=== PATIENT | male | born 1950 | race Caucasian/White ===

== ENCOUNTER 2017-04-04 00:53 | Inpatient (IN) | payer OTHER ==
[~2017-04-04] VITALS: Ht 180.3 cm; Wt 89.0 kg
[2017-04-04 02:28] LABS: CALCIUM 8.5 mg/dL (8.5-10.1); CARBON DIOXIDE 27.1 mmol/L (21-32); CHLORIDE SERUM 105 mmol/L (98-107); CREATININE SERUM 1.2 mg/dL (0.7-1.3); GFR1 > 60 mL/min; GLUCOSE SERUM 157 mg/dL (74-106); POTASSIUM SERUM 3.5 mmol/L (3.5-5.1); SODIUM SERUM 142 mmol/L (136-145)
[2017-04-04 02:33] LABS: ALBUMIN 3.6 g/dL (3.4-5.0); ALKALINE PHOSPHATASE 54 U/L (46-116); ALT/SGPT 34 U/L (16-63); AST/SGOT 21 U/L (15-37); BILIRUBIN TOTAL 0.48 mg/dL (0.20-1.00)
[2017-04-04 03:01] LABS: BASOPHIL % 0.4 % (0-2); PLATELET COUNT 259 x10^3mcL (130-400)
[2017-04-04] MEDS ORDERED: LIPI10 PO (03:14)
[2017-04-04] MEDS ORDERED: HYDROCHLOROTH12.5 M2 PO (03:15)
[2017-04-04 03:56] VITALS: BP 127/74
[2017-04-04 04:53] LABS: FREE T4 0.93 ng/dL (0.76-1.46); FREE THYROXINE INDEX 2.5 ug/dL (1.4-4.5); T4(THYROXINE) 7.2 ug/dL (4.7-13.3)
[2017-04-04 04:54] LABS: T3 TOTAL 1.25 ng/mL
[2017-04-04 05:05] LABS: MAGNESIUM 2.1 mg/dL (1.8-2.4); PHOSPHOROUS 2.8 mg/dL (2.5-4.9)
[2017-04-04 05:38] VITALS: BP 127/74
[2017-04-04 09:45] VITALS: BP 112/64
[2017-04-04 13:41] VITALS: BP 122/75
[2017-04-04 17:39] VITALS: BP 130/64
[2017-04-04 20:41] VITALS: BP 132/70
[2017-04-05 05:43] VITALS: BP 140/71
[2017-04-05 09:14] VITALS: BP 146/70
[2017-04-05 17:45] VITALS: BP 138/74
[2017-04-05 20:58] VITALS: BP 150/78
[2017-04-06 05:47] VITALS: BP 139/74
[2017-04-06 06:17] LABS: PLATELET COUNT 213 x10^3mcL (130-400); RED CELL DISTRIBUTION WIDTH 13.1 % (11.5-14.5)
[2017-04-06 06:40] LABS: CALCIUM 8.4 mg/dL (8.5-10.1); CARBON DIOXIDE 30.5 mmol/L (21-32); CHLORIDE SERUM 104 mmol/L (98-107); CREATININE SERUM 0.9 mg/dL (0.7-1.3); GFR1 > 60 mL/min; GLUCOSE SERUM 117 mg/dL (74-106); PHOSPHOROUS 2.6 mg/dL (2.5-4.9); POTASSIUM SERUM 3.7 mmol/L (3.5-5.1); SODIUM SERUM 140 mmol/L (136-145)
[2017-04-06 09:06] LABS: microscopic required? NO
[2017-04-06 09:22] VITALS: BP 142/77
[2017-04-06 10:08] LABS: urine erythrocyte NEGATIVE (NEGATIVE)
[2017-04-06 11:02] LABS: AMPHETAMINE QUAL UR NONE DETECTED (NEG <=1000)
[2017-04-06 16:42] VITALS: BP 151/76
[2017-04-06 20:53] VITALS: BP 152/73
[2017-04-07 05:04] VITALS: BP 111/65
[2017-04-07 06:29] LABS: BASOPHIL % 0.1 % (0-2); PLATELET COUNT 202 x10^3mcL (130-400); RED CELL DISTRIBUTION WIDTH 12.9 % (11.5-14.5)
[2017-04-07 06:39] LABS: CALCIUM 8.1 mg/dL (8.5-10.1); CARBON DIOXIDE 28.3 mmol/L (21-32); CHLORIDE SERUM 100 mmol/L (98-107); GFR1 > 60 mL/min; GLUCOSE SERUM 124 mg/dL (74-106); SODIUM SERUM 137 mmol/L (136-145)
[2017-04-07 13:19] VITALS: BP 135/59
[2017-04-07 18:05] VITALS: BP 138/62
[2017-04-07 21:29] VITALS: BP 123/66
[2017-04-08 06:30] VITALS: BP 143/63
[2017-04-08 06:39] LABS: CALCIUM 8.2 mg/dL (8.5-10.1); CARBON DIOXIDE 27.5 mmol/L (21-32); CHLORIDE SERUM 104 mmol/L (98-107); CREATININE SERUM 0.9 mg/dL (0.7-1.3); GFR1 > 60 mL/min; GLUCOSE SERUM 126 mg/dL (74-106); POTASSIUM SERUM 3.8 mmol/L (3.5-5.1); SODIUM SERUM 137 mmol/L (136-145)
[2017-04-08 08:08] LABS: BASOPHIL % 0.2 % (0-2); PLATELET COUNT 207 x10^3mcL (130-400); RED CELL DISTRIBUTION WIDTH 12.9 % (11.5-14.5)
[2017-04-08 09:25] VITALS: BP 125/69
[2017-04-08 18:01] VITALS: BP 137/66
[2017-04-08 21:43] VITALS: BP 130/64
[2017-04-09 05:46] VITALS: BP 137/73
[2017-04-09 06:15] LABS: BASOPHIL % 0.2 % (0-2); PLATELET COUNT 228 x10^3mcL (130-400); RED CELL DISTRIBUTION WIDTH 12.8 % (11.5-14.5)
[2017-04-09 06:22] LABS: CALCIUM 8.7 mg/dL (8.5-10.1); CARBON DIOXIDE 30.6 mmol/L (21-32); CHLORIDE SERUM 102 mmol/L (98-107); GFR1 > 60 mL/min; GLUCOSE SERUM 114 mg/dL (74-106); SODIUM SERUM 139 mmol/L (136-145)
[2017-04-09 09:14] VITALS: BP 128/70
[2017-04-09] MEDS ORDERED: NOR10T PO (10:14)
[2017-04-09 11:10] VITALS: BP 128/70
== END 2017-04-09 11:44 | disposition home health service (06) | DRG 469 ==
LOC: ED 00:53 → MU 03:14 → DU 03:14 → MU 04-05 09:08
PROVIDERS: Emergency Medicine; Family Medicine; Neuromusculoskeletal Medicine, Sports Medicine; ADMIT Student in an Organized Health Care Education/Training Program
PROC: 0SRR03A Replacement of Right Hip Joint, Femoral Surface with Ceramic Synthetic Substitute, Uncemented, Open Approach (ICD-10-PCS; principal; 2017-04-06 10:30)
DX: S72.011A Unspecified intracapsular fracture of right femur, initial encounter for closed fracture (principal); N17.0 Acute kidney failure with tubular necrosis; R73.03 Prediabetes; D72.829 Elevated white blood cell count, unspecified; E83.51 Hypocalcemia; I10 Essential (primary) hypertension; E02 Subclinical iodine-deficiency hypothyroidism; E78.5 Hyperlipidemia, unspecified; W18.39XA Other fall on same level, initial encounter; Y93.89 Activity, other specified; Y92.018 Other place in single-family (private) house as the place of occurrence of the external cause; Z68.27 Body mass index [BMI] 27.0-27.9, adult; Z87.891 Personal history of nicotine dependence
CPT/HCPCS: 82962; 83880; 84439; 90715; 97110-GP; 97116-GP; 97530-GP; C1776; J0690; J1644; J1885; J2250; J2270; J2405; J3010; J3490; J7030; Q0092